=== PATIENT | male | born 1985 | race African-American/Black ===

== ENCOUNTER 2023-03-31 12:11 | Emergency (ER) | payer OTHER, SELFPAY ==
[2023-03-31 12:24] VITALS: BP 167/110; PULSE 71; RESP 16; TEMP 36.4; O2SAT 97; BMI 30.4
[2023-03-31 12:26] VITALS: PULSE 64; RESP 14; O2SAT 95
--- NOTE | 2023-03-31 12:27 | DI.RAD.S_ITS ---
PROCEDURE: XR CHEST 1V INDICATIONS: chest pain TECHNIQUE: One view of the chest was acquired. COMPARISON: None. FINDINGS: Surgical changes and devices: None. Lungs and pleura: Lungs are clear. No pleural effusions or pneumothorax. Mediastinum: Mediastinal contours appear normal. Heart size is normal. Bones and chest wall: No suspicious bony lesions. Overlying soft tissues appear unremarkable. IMPRESSION: No acute cardiopulmonary abnormality is seen. Dictated by: Robert Aguilar M.D. on 03/31/2023 at 11:52 Approved by: Robert Aguilar M.D. on 03/31/2023 at 11:53
[2023-03-31 12:30] VITALS: BP 145/97; PULSE 59; RESP 13; O2SAT 95
--- NOTE | 2023-03-31 12:34 | ED_ITS ---
HPI - Syncope General Chief Complaint: Dizziness Stated Complaint: Dizziness, syncope, High BP 150/103 Time Seen by Provider: 03/31/23 12:15 Source: patient, RN notes reviewed and old records reviewed Mode of arrival: Ambulatory Limitations: no limitations History of Present Illness HPI narrative: 37-year-old male with history of GERD who presents with complaint of spinning sensation particularly when he turns his head quickly or bends over and straighten back up. Patient states it feels like everything spinning feels like it might start to go dark but has not had any syncopal episodes. Being upright is fine he lays down flattened rolls over worsens his symptoms. Patient denies any fevers or chills. He has had some recent nasal congestion little bit of sore throat. He denies any pain or fullness in his ears, no changes in hearing. Denies any vision changes. No numbness, tingling or weakness. No difficulty with gait. No chest pain, no shortness of breath, no nausea or vomiting. No syncope. No headaches. He has occasionally had very mild symptoms similar to this but not regularly. Takes Prilosec his only daily medication occasionally takes Tums. He does check his blood pressure but states he runs about 140s he has been told it was elevated in the past a few times but has never been started on medication. Had a hernia repair as a child. No known drug allergies. No tobacco, occasional alcohol, no illicit. Follows with primary care at the [facility]. Review of Systems Review of Systems ROS Unobtainable: All systems reviewed & are unremarkable except as noted in HPI and below Exam Narrative Exam Narrative: GEN: well nourished, well appearing male, alert and oriented x 3, patient appears to be in mild distress. HEENT: Atraumatic, pupils are equal round reactive to light, extraocular movements are intact, nares are clear, TMs are clear, retracted with small amount fluid, no erythema, light reflexes present, there is no conjunctival pallor. Throat is clear without any exudates, erythema, tonsillar enlargement or uvular deviation HEART: Regular rate and rhythm without murmur, clicks, rubs. LUNGS:Lungs clear to auscultation, no wheezes, rales, crackles, chest moves symmetrically ABD:bowel sounds normal, soft, non-tender, no guarding, rebound, rigidity, no masses noted, no hepatosplenomegaly MSCL: Non-tender, no muscle atrophy, muscles strength 5/5 upper and lower extremities, full range of motion, normal gait NEURO:CN 2-12 intact, sensation normal, finger nose finger test normal, heel paul test normal SKIN: No rash, erythema or other skin changes Initial Vital Signs Initial Vital Signs: Vital Signs Temperature 97.6 F 03/31/23 12:24 Pulse Rate 71 03/31/23 12:24 Respiratory Rate 16 03/31/23 12:24 Blood Pressure 167/110 H 03/31/23 12:24 Pulse Oximetry 97 03/31/23 12:24 Oxygen Delivery Method Room Air 03/31/23 12:24 Course Orders Ordered: ED Orders 03/31/23 12:23 Complete Blood Count AUTO DIFF Stat Comprehensive Metabolic Panel Stat Covid-19 + FLU A/B + RSV - PCR Stat Lipase Stat Magnesium Stat PTT Partial Thromboplastin Vahid Stat Prothrombin Time INR Stat Troponin & CK Cardiac Panel Stat 03/31/23 12:27 XR chest 1V Stat EKG-12 Lead Stat Vital Signs Vital signs: Vital Signs - 8 hr 03/31/23 12:24 03/31/23 12:26 03/31/23 12:30 Temperature 97.6 F Pulse Rate 71 64 59 L Respiratory Rate 16 14 13 Blood Pressure 167/110 H Pulse Oximetry 97 95 95 Oxygen Delivery Method Room Air Room Air 03/31/23 12:30 03/31/23 12:45 03/31/23 12:45 Temperature Pulse Rate 61 Respiratory Rate 15 Blood Pressure 145/97 H 148/96 H Pulse Oximetry 95 Oxygen Delivery Method Room Air 03/31/23 13:00 03/31/23 13:00 03/31/23 13:15 Temperature Pulse Rate 61 60 Respiratory Rate 15 13 Blood Pressure 140/92 H Pulse Oximetry 97 97 Oxygen Delivery Method Room Air 03/31/23 13:15 Temperature Pulse Rate Respiratory Rate Blood Pressure 137/91 H Pulse Oximetry Oxygen Delivery Method MDM - Syncope Lab Data 03/31/23 12:23 03/31/23 12:23 Labs: Lab Results 03/31/23 Range/Units 12:23 WBC 7.0 (4.5-11.0) X10^3/uL RBC 5.48 (4.5-5.9) X10^6/uL Hgb 16.0 (13.5-17.5) g/dL Hct 46.3 (41-53) % MCV 84.5 (80-100) fL MCH 29.2 (26-34) PG MCHC 34.6 (30-36) % RDW 13.2 (11.6-14.8) % Plt Count 199 (150-400) X10^3/uL Neut % (Auto) 56.7 (50-75) % Lymph % (Auto) 31.1 (25-40) % [place] % (Auto) 9.4 (3-14) % Eos % (Auto) 2.1 (2-4) % Baso % (Auto) 0.7 (0-2) % Neut # (Auto) 3900 (9073-2825) /uL Lymph # (Auto) 2200 (1346-1757) /uL [place] # (Auto) 700 (0-900) /uL Eos # (Auto) 100 (0-450) /uL Baso # (Auto) 0 (0-100) /uL PT 12.6 (10.1-12.7) SECONDS INR 1.1 (0.9-1.3) APTT 35 (26-36) SECONDS Sodium 138 (137-145) mmol/L Potassium 4.3 (3.4-5.1) mmol/L Chloride 106 (98-107) mmol/L Carbon Dioxide 25 (22-32) mmol/L BUN 14 (9-20) mg/dL Creatinine 0.95 (0.66-1.25) mg/dL Estimated GFR > 60 (>60) mL/min BUN/Creatinine Ratio 14.7 (6-22) Glucose 97 (70-100) mg/dL Calcium 9.7 (8.4-10.2) mg/dL Magnesium 2.0 (1.6-2.3) mg/dL Total Bilirubin 0.5 (0.2-1.3) mg/dL AST 40 (17-59) IU/L ALT 72 H (<50) IU/L Alkaline Phosphatase 59 (38-126) U/L Total Creatine Kinase 76 (55-170) U/L Troponin I < 0.012 (0.01-0.034) ng/mL Total Protein 7.7 (6.3-8.2) g/dL Albumin 4.5 (3.5-5.0) g/dL Globulin 3.2 (1.7-4.1) g/dL Albumin/Globulin Ratio 1.4 (1.0-2.8) Lipase 139 (23-300) U/L SARS-CoV-2 (PCR) Negative (Negative) Influenza A (RT-PCR) Flu a negative (NEGATIVE) Influenza B (RT-PCR) Flu b negative (NEGATIVE) RSV (PCR) Negative (Negative) Imaging Data Chest x-ray: Radiologist's Impression: Close Chest X-Ray (Signed) Robert Aguilar - 03/31/23 Launch?[address] [address] XRay Report Signed Patient: Alex Siddiqui MR#: [id number] : 1985 Acct:[id number] Age/Sex: 37 / M Date of Service: 03/31/23 Loc: ED Accession Number: [id number] Procedure: XR chest 1V Ordering Provider: Stella Larose D.O. PROCEDURE: XR CHEST 1V INDICATIONS: chest pain TECHNIQUE: One view of the chest was acquired. COMPARISON: None. FINDINGS: Surgical changes and devices: None. Lungs and pleura: Lungs are clear. No pleural effusions or pneumothorax. Mediastinum: Mediastinal contours appear normal. Heart size is normal. Bones and chest wall: No suspicious bony lesions. Overlying soft tissues appear unremarkable. IMPRESSION: No acute cardiopulmonary abnormality is seen. Dictated by: Robert Aguilar M.D. on 03/31/2023 at 11:52 Approved by: Robert Aguilar M.D. on 03/31/2023 at 11:53 ECG Data Attestation: I personally reviewed and interpreted this ECG as follows: Prior ECG tracings: not available for review Interpretation: Sinus rhythm rate of 62 NM 158 QRS of [address] QTC [address] No acute [address] elevation. Patient does have a Q-wave in 3 and AVF inverted T and nonspecific change in lateral lead. No priors for comparison. MDM Narrative Medical decision making narrative: 37-year-old male who has vertigo-like symptoms when he moves his head quickly or bends over. He has had a recent upper respiratory infection, his ears are clear on examination they are slightly retracted but no signs of infection. Suspect a little bit of mild vertigo secondary to viral labyrinthitis or similar cause. Patient does not have any other acute neurologic changes. His exam is overall benign. CBC shows no acute change, coags are negative, CMP shows an ALT of 72, otherwise negative chest x-ray shows no acute change. Influenza/RSV/COVID is negative. Discussed with patient he states symptoms are very mild he defers meclizine or any medication. Discharge Plan Departure Patient Disposition: Home Clinical Impression: Vertigo Instructions: DI for Vertigo Activity Restrictions/Additional Instructions: Please follow-up with your physician for recheck. You may take meclizine or Antivert [id number] 1-2 tablets every 6-8 hours as needed. Please return for rapidly worsening symptoms severe headaches, passing out, new numbness, tingling weakness or difficulty with movement, speech, ambulation, persistent vomiting or other new or concerning changes. Stand Alone Forms: Patient Portal/API
[2023-03-31 12:45] VITALS: BP 148/96; PULSE 61; RESP 15; O2SAT 95
[2023-03-31 12:49] LABS: Alanine Aminotransferase 72 IU/L (<50); Albumin 4.5 g/dL (3.5-5.0); Albumin Globulin Ratio 1.4 (1.0-2.8); Alkaline Phosphatase 59 U/L (38-126); Aspartate Aminotransferase 40 IU/L (17-59); BUN Creatinine Ratio 14.7 (6-22); Bilirubin Total 0.5 mg/dL (0.2-1.3); Blood Urea Nitrogen 14 mg/dL (9-20); Calcium 9.7 mg/dL (8.4-10.2); Carbon Dioxide 25 mmol/L (22-32); Chloride 106 mmol/L (98-107); Creatine Kinase 76 U/L (55-170); Estimated Glomerular Filt Rate > 60 mL/min (>60); Globulin 3.2 g/dL (1.7-4.1); Glucose 97 mg/dL (70-100); HEMOLYSIS 32 (0-50); INR 1.1 (0.9-1.3); Lipase 139 U/L (23-300); Potassium 4.3 mmol/L (3.4-5.1); Prothrombin Time 12.6 SECONDS (10.1-12.7); Sodium 138 mmol/L (137-145); Total Protein 7.7 g/dL (6.3-8.2)
[2023-03-31 12:51] LABS: Add Manual Diff / Slide Review NO; Basophils Absolute Auto 0 /uL (0-100); Basophils Percent Auto 0.7 % (0-2); Eosinophils Absolute Auto 100 /uL (0-450); Eosinophils Percent Auto 2.1 % (2-4); Hematocrit 46.3 % (41-53); Lymphocytes Absolute Auto 2200 /uL (1100-4500); Lymphocytes Percent Auto 31.1 % (25-40); Mean Corpuscular HGB Conc 34.6 % (30-36); Mean Corpuscular Hemoglobin 29.2 PG (26-34); Mean Corpuscular Volume 84.5 fL (80-100); Monocytes Absolute Auto 700 /uL (0-900); Monocytes Percent Auto 9.4 % (3-14); Neutrophils Absolute Auto 3900 /uL (1500-7000); Neutrophils Percent Auto 56.7 % (50-75); PTT Partial Thromboplastin Tim 35 SECONDS (26-36); Platelet Count 199 X10^3/uL (150-400); Red Blood Cell Count 5.48 X10^6/uL (4.5-5.9); Red Cell Distribution Width 13.2 % (11.6-14.8)
[2023-03-31 13:00] VITALS: BP 140/92; PULSE 61; RESP 15; O2SAT 97
[2023-03-31 13:01] LABS: Troponin I < 0.012 ng/mL (0.01-0.034)
[2023-03-31 13:13] LABS: Influenza A - CEPHEID Flu A NEGATIVE (NEGATIVE); Influenza B - CEPHEID Flu B NEGATIVE (NEGATIVE); Respiratory Syncytial Virus Negative (Negative)
[2023-03-31 13:15] VITALS: BP 137/91; PULSE 60; RESP 13; O2SAT 97
[2023-03-31 13:19] LABS: COVID-19 CEPHEID 4-PLEX PCR Negative (Negative)
== END 2023-03-31 13:33 | disposition home or self-care (01) ==
LOC: ED 13:24
PROVIDERS: Emergency Provider Emergency Medicine
DX: R42 Dizziness and giddiness (principal); R55 Syncope and collapse; R07.9 Chest pain, unspecified; Z20.822 Contact with and (suspected) exposure to COVID-19
CPT/HCPCS: 0241U; 36415; 71045; 80053; 82550; 83690; 83735; 84484; 85025; 85610; 85730; 93005; 93010; 99283; 99284

== ENCOUNTER 2023-07-22 11:59 | Day surgery (SDC) | payer OTHER, SELFPAY ==
--- NOTE | 2023-07-22 | PATH_ITS ---
[facility] Accession Number: [id number] No. of containers..02 Tissue . 01 Material submitted: . PART A: gastrointestinal site - ANTRUM PART B: esophagus - DISTAL ESOPHAGUS . 01 Diagnosis: Part A: ANTRUM: Gastric mucosa with minimal chronic inflammation. No Helicobacter organisms identified. No intestinal metaplasia, dysplasia, or malignancy identified. . Part B: DISTAL ESOPHAGUS: Proximal gastric-type glandular mucosa with mild chronic inflammation. No goblet cell metaplasia, dysplasia, or malignancy identified. RUST 07/30/2023 1310 Local . 01 Comment: Part A: An immunohistochemical stain was performed to evaluate for Helicobacter organisms and is negative. The control stains appropriately. * This test was developed and its performance characteristics determined by [facility]. It has not been cleared or approved by the U.S. Food and Drug Administration. The FDA has determined that such clearance or approval is not necessary. This test is used for clinical purposes. It should not be regarded as investigational or for research. . 01 Electronically signed: . Rk Mills MD, Pathologist NPI- [id number] . 01 Gross description: . Part A: ANTRUM: Received in formalin is 1 fragment(s) of hernandez, soft tissue measuring 0.3 x 0.3 x 0.2 cm submitted entirely in 1 cassette(s) . Part B: DISTAL ESOPHAGUS: Received in formalin is 1 fragment(s) of hernandez, soft tissue measuring 0.2 x 0.2 x 0.2 cm submitted entirely in 1 cassette(s) /MIRNA 07/30/2023 1310 Local . 01 Pathologist provided ICD-10: K20.90, K29.30 . 01 CPT . 875300, 224551, V91194 Specimen Comment: A courtesy copy of this report has been sent to [phone] Performed at: 01 [facility] [address], [place], [place] [address] MD Rk Mills MD Phone: [phone]
[2023-07-22 13:39] VITALS: BP 142/95; PULSE 76; RESP 18; TEMP 36.5; O2SAT 98
[2023-07-22 13:51] VITALS: BMI 30.4
--- NOTE | 2023-07-22 14:21 | P.HP_ITS ---
History of Present Illness History of Present Illness Date Patient Seen: 07/22/23 Time Patient Seen: 14:22 Chief complaint: EGD Narrative: This is a 37-year-old male reporting for upper endoscopy. I reviewed the recent clinic note by Galdino Mreaz. No significant changes. Spent a 12 year history of reflux. If he drops down to less than twice daily omeprazole he seems to have fairly frequent breakthrough symptoms. [facility] Social History household members: spouse Smoking Status: Former smoker Meds Home Medications and Allergies Home Medications Medication Instructions Recorded Confirmed Type fluticasone propionate 50 1 spray intranasal BID 07/22/23 07/22/23 History mcg/actuation nasal spray,suspension lisinopril 5 mg tablet 5 mg PO DAILY 07/22/23 07/22/23 History meclizine 25 mg chewable tablet 25 mg PO 3XD 07/22/23 07/22/23 History omeprazole 20 mg capsule,delayed 20 mg PO BID 07/22/23 07/22/23 History release Allergies Allergy/AdvReac Type Severity Reaction Status Date / Time No Known Drug Allergies Allergy Verified 07/22/23 13:35 Review of Systems Review of Systems ROS: Yes All systems reviewed with the patient and are negative except as otherwise documented Exam Vital Signs (past 8 hours): - 07/22/23 13:39 Temperature 97.7 F Pulse Rate 76 Respiratory Rate 18 Blood Pressure 142/95 H Pulse Oximetry 98 Oxygen Delivery Method Room Air Oxygen Delivery Method Room Air Const General: cooperative HENMT Head: normal to inspection Eyes General: appearance normal, both eyes and all related structures Neck Neck: normal visual inspection Chest Chest: normal inspection of the chest Resp Effort & Inspection: normal respiratory effort Cardio Rate: regular rate GI Inspection: normal to inspection Skin General: no rashes or lesions noted Neuro General: patient alert and patient awake Extrem General: normal to inspection and no pedal edema Psych Appearance: grossly normal Assessment & Plan Assessment & Plan narrative: 37-year-old male with a chronic reflux history. EGD is pursued today to screen for Barretts and exclude any other potentially contributing pathology here.
--- NOTE | 2023-07-22 14:23 | PM.PREOP ---
Pre-operative Note Interval Note History & Physical reviewed/Exam performed by Physician: Yes Changes to H&P: No ASA Class (for procedural sedation): II
--- NOTE | 2023-07-22 15:35 | P.OP.EGD_ITS ---
Operative Date/Time/Diagnoses Date of procedure: 07/22/23 Time of procedure: 15:35 Pre-op diagnosis: Chronic reflux Post-op diagnosis: same Procedure & Clinicians Study performed: EGD with biopsies Same procedure as scheduled: Yes Indications: Chronic reflux Surgeon: Dirk Rodas Procedure Notes SCOAP/Timeout: Done Procedure in detail: After the risks and benefits were explained, written and verbal informed consent was obtained. The patient was brought into the procedure room and placed into the left lateral decubitus position. Please see anesthesia notes for sedation details. The scope was introduced into the mouth through the bite block and advanced under direct visualization to the 2nd portion of the duodenum. The scope was slowly withdrawn carefully examining the mucosa for any defects or lesions. Retroflexed views were accomplished in the stomach. The stomach was decompressed, the scope was then removed from the patient who tolerated the procedure well. Sedation minutes: 10 Complications: none Impression: 1. Duodenal: No pathology identified from the bulb through to the 2nd portion. 2. Stomach: The patient had a subtle erosive gastropathy in the antrum and pre- pyloric region. Couple of these areas were sampled with forceps for histopathology and exclusion of H pylori. Retroflexed views of the LES were unremarkable. There was no gastric outlet obstruction. No masses. No ulcers. 3. Esophagus: The squamocolumnar junction correlated with the top of the gastric folds for the most part. The GEJ was at roughly 39 cm from the incisors. The diaphragmatic pinchcock was at about 41 cm from the incisors. The patient had evidence of LA grade B erosive esophagitis. There was some vari ability to the Z-line as well and I biopsied tongue of what might returns supervisor to be short-segment Barretts. By [place] criteria, this would be C 0 M 0.5. There was no nodularity at the GE junction. No stricturing. The distal esophagus was moderately tortuous. There was a benign-appearing inlet patch noted just below the UES. Endoscopic diagnosis 1. Small sliding hiatal hernia 2. LA grade B erosive esophagitis 3. Possible C 0 M 0.5 Barretts 4. Erosive gastropathy Post-procedure Plan for aftercare: 1. Await histology. 2. Minimize NSAIDs. 3. Continue omeprazole. Both doses need to be taken about 30-60 minutes before a meal on a relatively empty stomach. 4. The timing of any surveillance endoscopy will be contingent on histopathology results. F Disposition: PACU
[2023-07-22 15:37] VITALS: BP 118/81; PULSE 89; RESP 17; TEMP 36.4; O2SAT 95
[2023-07-22 15:42] VITALS: BP 129/92; PULSE 86; RESP 16; O2SAT 95
[2023-07-22 15:47] VITALS: BP 132/94; PULSE 78; RESP 17; TEMP 36.4; O2SAT 95
[2023-07-22 15:51] VITALS: BP 125/88; PULSE 72; RESP 15; O2SAT 96
== END 2023-07-22 16:05 | disposition home or self-care (01) ==
PROVIDERS: Referring Provider Internal Medicine Gastroenterology; Visit Provider Internal Medicine Gastroenterology
PROC: 0DJ08ZZ Inspection of Upper Intestinal Tract, Via Natural or Artificial Opening Endoscopic (ICD-10-PCS; CPT 43235; principal; 2023-07-22 13:00)
DX: K21.00 Gastro-esophageal reflux disease with esophagitis, without bleeding (principal); K44.9 Diaphragmatic hernia without obstruction or gangrene; K31.9 Disease of stomach and duodenum, unspecified; K29.50 Unspecified chronic gastritis without bleeding
CPT/HCPCS: 43239; J2704

== ENCOUNTER → 2023-08-13 08:03 | Outpatient (CLI) | payer OTHER, SELFPAY ==
--- NOTE | 2023-08-13 08:06 | DI.RAD.S_ITS ---
PROCEDURE: FL UPPER GI SERIES INDICATIONS: Gastritis, unspecified, without bleeding COMPARISON: None. FINDINGS: KUB: Preprocedural educational guidance counselor film demonstrates a normal bowel gas pattern. No suspicious abdominal calcifications. Visualized solid organ contours appear normal. Bony structures appear unremarkable. Esophagus: Esophageal mucosa is normal on air-contrast views. On single-contrast views, there is normal esophageal peristalsis. No strictures, extrinsic mass effects, or diverticula. Small hiatal hernia and mild elicited gastroesophageal reflux. There is normal transit of a calibrated barium tablet through the esophagus. Stomach: The stomach is normally distensible, with normal rugal fold thickness. No mucosal masses or ulcers. Pylorus and duodenal bulb appear normal in morphology. IMPRESSION: 1. Small hiatal hernia. 2. Mild elicited gastroesophageal reflux. 3. Normal appearance of the esophagus and stomach. Dictated by: Nicola Bernal M.D. on 08/13/2023 at 12:58 Approved by: Nicola Bernal M.D. on 08/13/2023 at 13:00
== END ==
LOC: RAD 08:04
PROVIDERS: Referring Provider Internal Medicine; Visit Provider Internal Medicine
DX: K21.9 Gastro-esophageal reflux disease without esophagitis (principal); K44.9 Diaphragmatic hernia without obstruction or gangrene; K29.70 Gastritis, unspecified, without bleeding; R05.9 Cough, unspecified
CPT/HCPCS: 74240